=== PATIENT | male | born 1955 | race Caucasian/White ===

== ENCOUNTER → 2017-02-06 | Outpatient (CLI) | payer OTHER ==
[~2017-02-06] MED LIST: ATOR10TA88 PO; COEN400C3 PO; CZR25 PO; NIAC500T11 PO
[2017-02-06 12:09] LABS: BASO % 0.2 %; BASO ABS # 0.01 K/uL (0-0.2); COMPLETE YES; EOS % 1.3 %; HEMATOCRIT 38.5 % (42-52); IG% 0.2 %; LYMPH % 28.3 %; LYMPH ABS # 1.54 K/uL (1.2-3.4); MEAN CELL VOLUME 88.1 fL (80-100); MEAN CORPUSCULAR HEMOGLOBIN 30.9 pg (25-34); MEAN CORPUSCULAR HGB CONC 35.1 g/dl (32-36); MONO % 6.6 %; NEUT % 63.4 %; PLATELET COUNT 268 K/uL (130-400); RED BLOOD COUNT 4.37 M/uL (4.7-6.1); WHITE BLOOD COUNT 5.44 K/uL (4.8-10.8)
[2017-02-06 12:24] LABS: ALB/GLOB RATIO 1.3 (0.9-2); ALT/SGPT 29 U/L (12-78); AST/SGOT 18 U/L (15-37); BLOOD UREA NITROGEN 14 mg/dl (7-18); BUN/CREATININE RATIO 14.3 (10-20); CALCIUM 9.3 mg/dl (8.5-10.1); CARBON DIOXIDE 25 mmol/L (21-32); CHLORIDE 107 mmol/L (98-107); CREATININE 0.95 mg/dl (0.60-1.40); GLUCOSE 127 mg/dl (70-99); POTASSIUM 4.3 mmol/L (3.5-5.1); SODIUM 139 mmol/L (136-145)
[2017-02-06 12:30] LABS: ALKALINE PHOSPHATASE 63 U/L (45-117); CHOLESTEROL 143 mg/dl (0-200); CHOLESTEROL/HDL RATIO 4.3; HDL CHOLESTEROL 33 mg/dl; LDL CHOLESTEROL CALCULATED 66 mg/dl; TRIGLYCERIDES 221 mg/dl (0-150); VERY LOW DENSITY LIPOPROT CALC 44 mg/dl
[2017-02-06 12:35] LABS: ESTIMATED AVERAGE GLUCOSE 128 mg/dl; HA1C FLAG Normal (Normal)
== END | disposition home or self-care (01) ==
LOC: C.LABBFT 07:16
PROVIDERS: ATTEND Nurse Practitioner
DX: E78.00 Pure hypercholesterolemia, unspecified (principal); I10 Essential (primary) hypertension; R79.9 Abnormal finding of blood chemistry, unspecified; D64.9 Anemia, unspecified; R73.01 Impaired fasting glucose; Z12.5 Encounter for screening for malignant neoplasm of prostate

== ENCOUNTER → 2017-06-25 | Outpatient (CLI) | payer OTHER ==
[~2017-06-25] MED LIST changes: +ATOR10TA82 PO; -ATOR10TA88 PO
[2017-06-25 09:31] LABS: HEMATOCRIT 40.1 % (42-52); HEMOGLOBIN 14.1 g/dL (14.0-18.0); MEAN CELL VOLUME 87.4 fL (80-100); MEAN CORPUSCULAR HEMOGLOBIN 30.7 pg (25-34); MEAN CORPUSCULAR HGB CONC 35.2 g/dl (32-36); MEAN PLATELET VOLUME 9.9 fL (7.4-10.4); PLATELET COUNT 234 K/uL (130-400); RED CELL DISTRIBUTION WIDTH CV 12.7 % (11.5-14.5); RED CELL DISTRIBUTION WIDTH SD 40.5 fL (36.4-46.3); WHITE BLOOD COUNT 6.23 K/uL (4.8-10.8)
[2017-06-25 09:42] LABS: ALT/SGPT 39 U/L (12-78); BLOOD UREA NITROGEN 19 mg/dl (7-18); CALCIUM 9.3 mg/dl (8.5-10.1); CARBON DIOXIDE 25 mmol/L (21-32); CHOLESTEROL 180 mg/dl (0-200); CREATININE 0.91 mg/dl (0.60-1.40); GLUCOSE 139 mg/dl (70-99); POTASSIUM 4.3 mmol/L (3.5-5.1); SODIUM 136 mmol/L (136-145)
[2017-06-25 09:45] LABS: ALKALINE PHOSPHATASE 58 U/L (45-117); AST/SGOT 21 U/L (15-37); TOTAL PROTEIN 7.3 gm/dl (6.4-8.2)
[2017-06-25 09:49] LABS: HEMOGLOBIN A1C 6.2 % (4.5-5.6)
== END | disposition home or self-care (01) ==
LOC: C.LAB 06:58
PROVIDERS: ATTEND Nurse Practitioner
DX: D64.9 Anemia, unspecified (principal); E78.00 Pure hypercholesterolemia, unspecified; R73.01 Impaired fasting glucose

== ENCOUNTER 2022-03-01 21:58 | Observation (INO) ==
[2022-03-01] MEDS ORDERED: STAT IV Infusion **Titration per Protocol STA (22:08)
[2022-03-01] MEDS ORDERED: dilTIAZem HCl 5 MG/ML 5 ML VIAL IV STA (22:08)
[2022-03-01] MEDS ORDERED: dilTIAZem HCL 125 MG in DEXTROSE 5% 100 ML IV SCH (22:15)
[2022-03-01 22:27] LABS: Hematocrit (blood only) 36.3 % (40.1-51.0); Mean Corpuscular Hemoglobin 31.4 pg (25.0-34.0); Mean Corpuscular Hgb Conc 35.8 g/dL (32.0-36.0); Mean Corpuscular Volume 87.7 fL (80.0-100.0); Mean Platelet Volume 9.7 fL (9.4-12.4); Platelet Count 236 K/uL (130-400); RDW Coefficient of Variation 12.4 % (11.5-14.5); RDW Standard Deviation 39.7 fL (36.4-46.3); Red Blood Count 4.14 M/uL (4.63-6.08); White Blood Count 7.48 K/ul (4.8-10.8)
--- NOTE | 2022-03-01 22:30 | Emergency Department Note ---
History of Present Illness General Chief complaint: Cardiac Assessment Stated complaint: A FIB WITH RVR History of Present Illness Maximum Pain Intensity: 2 This 66-year-old who is a history of A. fib on Xarelto and flecainide presents to the ER complaining of A. fib with chest discomfort Location: Chest Quality: Discomfort Severity: Moderate Duration: Today Timing: Today Context: Patient was concerned and called EMS Modifying factors: better with Cardizem; worse with nothing Patient states he had 3 glasses of wine. Nothing overly excessive for himself. He does not drink daily. He is not chronically in A. fib. He had cardioversion x3. Patient denies fever, chills, dyspnea, abdominal pain, flulike illness. Patient states he feels better after that medic gave him Cardizem. He states most of his symptoms have resolved. Home Medications Medication Instructions Recorded Confirmed Type CPAP Machine #1 ea 04/14/19 02/14/22 Rx CPAP Machine #1 ea 04/29/19 02/14/22 Rx CPAP Machine #1 ea 06/25/19 02/14/22 Rx CPAP Machine #1 ea 06/25/19 02/14/22 Rx baclofen 10 mg tablet 10 mg PO BID PRN muscle pain #60 07/25/21 03/01/22 Rx tabs metoprolol succinate 100 mg 150 mg PO PM #135 tabs 07/30/21 03/01/22 Rx tablet,extended release 24 hr rivaroxaban 20 mg tablet (Xarelto) 20 mg PO QPM 09/14/21 03/01/22 History hydrochlorothiazide 25 mg tablet 25 mg PO QAM #90 tabs 10/16/21 03/01/22 Rx doxazosin 2 mg tablet 2 mg PO QPM #90 tabs 12/10/21 03/01/22 Rx dulaglutide 1.5 mg/0.5 mL 1.5 mg (0.5 mL) subcut WK #2 mL 12/26/21 03/01/22 Rx subcutaneous pen injector losartan 50 mg tablet 50 mg PO DAILY #90 tabs 12/26/21 03/01/22 Rx flecainide 50 mg tablet 50 mg PO Q12H #180 tabs 12/27/21 03/01/22 Rx icosapent ethyl 1 gram capsule 2 g PO BID #360 caps 01/17/22 03/01/22 Rx (Vascepa) acetaminophen 300 mg-codeine 30 mg 1 tab PO Q8H PRN Pain #90 tabs 02/05/22 1 Rx tablet atorvastatin 80 mg tablet 80 mg PO HS #30 tabs 02/07/22 03/01/22 Rx levothyroxine 75 mcg tablet 75 mcg PO DAILY #90 tabs 02/27/22 03/01/22 Rx diclofenac sodium 1 % topical gel 2 g topical QID PRN PAIN 03/01/22 03/01/22 History valacyclovir 1 gram tablet 2,000 mg PO BID PRN Cold Sores 03/01/22 03/01/22 History Allergies Allergy/AdvReac Type Severity Reaction Status Date / Time amoxicillin Allergy Intermediate rash Verified 03/01/22 23:04 azithromycin Allergy Intermediate Rash Verified 03/01/22 23:04 clavulanic acid Allergy Intermediate rash Verified 03/01/22 23:04 clindamycin Allergy Unknown CANT Verified 03/01/22 23:04 REMEMBER Quinolones Allergy Unknown CANT Verified 03/01/22 23:04 REMEMBER INO Inhibitors AdvReac Intermediate Cough Verified 03/01/22 23:04 fentanyl AdvReac Intermediate "HARD TO Verified 03/01/22 23:04 GET OUT OF MY SYSTEM" metformin AdvReac Intermediate diarrhea Verified 03/01/22 23:04 rosuvastatin [From Crestor] AdvReac Intermediate NAUSEA AND Verified 03/01/22 23:04 CONSTIPATED tamsulosin AdvReac Intermediate dizziness Verified 03/01/22 23:04 Past Med/Surg History Medical History Anxiety Atrial fibrillation BPH with obstruction/lower urinary tract symptoms Cardiomyopathy Resolved Chronic back pain Diabetes mellitus, type 2 Hyperlipidemia Hypertension Osteoarthritis Sleep apnea CPAP Surgical History Adverse anesthesia outcome [place] ill x1 week (described as feeling hungover) - Fentanyl History of arthroscopy RIGHT History of cardioversion [place] with cardioversion 2019 History of colonoscopy History of endoscopic sinus surgery History of tonsillectomy Family History Father Hx of CABG Colon cancer Type 2 diabetes mellitus Other No family history of adverse response to anesthesia No family history of bleeding disorder Denies family history of Ovarian cancer Prostate cancer Myocardial infarction Breast cancer Social History Smoking Status: Former smoker Age Started Using Tobacco: 18; Age Quit Using Tobacco: 26; packs per day: 1; Second Hand Exposure: No; Hx Alcohol Use: Yes Alcohol type: beer and hard liquor Alcohol Intake Frequency Comment: 2-3 beers/ every 2 weeks Hx Substance Use: No Preferred Language: Swiss Communication Ability: Effective Hearing Ability: Hard of Hearing Seed Expert Required: No Beliefs That Will Affect Care: None marital status: Current Living Situation: Spouse current occupational status: employed 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 Safe at Home: Yes Childhood Exposure to Second-Hand Smoke: Yes caffeine: Yes Dental Care, Regularly: Yes Physical Activity Frequency: Does not Exercise Seatbelt Use: always Sunscreen Use: Yes Assistive Devices: CPAP and Glasses Review of Systems A total of 10 systems reviewed and were otherwise negative Physical Exam Vital Signs Vital Signs - 24 hr 03/01/22 22:03 03/01/22 22:30 03/01/22 22:35 Temperature 36.8 C Temperature Source Oral Pulse Rate 95 H 102 H 106 H Pulse Rate from SpO2 Sensor Respiratory Rate 20 18 18 Respiratory Depth Normal Blood Pressure 142/96 H 118/59 L 129/66 Blood Pressure Mean 111 78 87 Pulse Oximetry 96 95 96 Oxygen Delivery Method Room Air Sepsis New/Unexplained Change in Mental Status N/A Sepsis Action Taken by Nursing No Action Required 03/01/22 22:40 03/01/22 22:40 03/01/22 22:45 Temperature Temperature Source Pulse Rate 105 H 117 H Pulse Rate from SpO2 Sensor 111 H 112 H Respiratory Rate 23 25 H Respiratory Depth Blood Pressure 102/74 Blood Pressure Mean 83 Pulse Oximetry 96 96 Oxygen Delivery Method Sepsis New/Unexplained Change in Mental Status Sepsis Action Taken by Nursing 03/01/22 22:45 03/01/22 22:50 03/01/22 22:50 Temperature Temperature Source Pulse Rate 107 H 109 H Pulse Rate from SpO2 Sensor 110 H Respiratory Rate 17 Respiratory Depth Blood Pressure 131/66 111/62 Blood Pressure Mean 87 78 Pulse Oximetry 96 Oxygen Delivery Method Sepsis New/Unexplained Change in Mental Status Sepsis Action Taken by Nursing 03/01/22 22:55 03/01/22 22:55 03/01/22 23:00 Temperature Temperature Source Pulse Rate 102 H Pulse Rate from SpO2 Sensor 109 H Respiratory Rate 15 Respiratory Depth Blood Pressure 115/65 107/71 Blood Pressure Mean 81 83 Pulse Oximetry 96 Oxygen Delivery Method Sepsis New/Unexplained Change in Mental Status Sepsis Action Taken by Nursing 03/01/22 23:00 03/01/22 23:05 03/01/22 23:05 Temperature Temperature Source Pulse Rate 101 H 111 H Pulse Rate from SpO2 Sensor 109 H 110 H Respiratory Rate 20 23 Respiratory Depth Blood Pressure 127/70 Blood Pressure Mean 89 Pulse Oximetry 96 96 Oxygen Delivery Method Sepsis New/Unexplained Change in Mental Status Sepsis Action Taken by Nursing 03/01/22 23:10 03/01/22 23:10 03/01/22 23:15 Temperature Temperature Source Pulse Rate 104 H Pulse Rate from SpO2 Sensor 109 H Respiratory Rate 17 Respiratory Depth Blood Pressure 118/67 112/62 Blood Pressure Mean 84 78 Pulse Oximetry 97 Oxygen Delivery Method Sepsis New/Unexplained Change in Mental Status Sepsis Action Taken by Nursing 03/01/22 23:15 03/01/22 23:20 03/01/22 23:20 Temperature Temperature Source Pulse Rate 102 H 112 H Pulse Rate from SpO2 Sensor 107 H 109 H Respiratory Rate 19 21 Respiratory Depth Blood Pressure 106/68 Blood Pressure Mean 80 Pulse Oximetry 96 96 Oxygen Delivery Method Sepsis New/Unexplained Change in Mental Status Sepsis Action Taken by Nursing 03/01/22 23:25 03/01/22 23:25 03/01/22 23:30 Temperature Temperature Source Pulse Rate 103 H Pulse Rate from SpO2 Sensor 108 H Respiratory Rate 16 Respiratory Depth Blood Pressure 117/52 L 118/56 L Blood Pressure Mean 73 76 Pulse Oximetry 97 Oxygen Delivery Method Sepsis New/Unexplained Change in Mental Status Sepsis Action Taken by Nursing 03/01/22 23:30 03/01/22 23:35 03/01/22 23:35 Temperature Temperature Source Pulse Rate 106 H 97 H Pulse Rate from SpO2 Sensor 100 H 100 H Respiratory Rate 16 26 H Respiratory Depth Blood Pressure 126/57 L Blood Pressure Mean 80 Pulse Oximetry 96 96 Oxygen Delivery Method Sepsis New/Unexplained Change in Mental Status Sepsis Action Taken by Nursing 03/01/22 23:40 03/01/22 23:40 03/01/22 23:46 Temperature Temperature Source Pulse Rate 116 H 108 H Pulse Rate from SpO2 Sensor 109 H 98 H Respiratory Rate 20 19 Respiratory Depth Blood Pressure 126/70 Blood Pressure Mean 88 Pulse Oximetry 97 97 Oxygen Delivery Method Sepsis New/Unexplained Change in Mental Status Sepsis Action Taken by Nursing 03/01/22 23:46 03/01/22 23:50 03/01/22 23:50 Temperature Temperature Source Pulse Rate 98 H Pulse Rate from SpO2 Sensor 100 H Respiratory Rate 18 Respiratory Depth Blood Pressure 123/74 102/65 Blood Pressure Mean 90 77 Pulse Oximetry 96 Oxygen Delivery Method Sepsis New/Unexplained Change in Mental Status Sepsis Action Taken by Nursing VITALS: Vitals are noted on the nurse's note and reviewed by myself. Vital signs tachycardic. GENERAL: Pleasant gentleman, in no acute distress, nondiaphoretic, well- developed well-nourished. SKIN: The skin was without rashes, erythema, edema, or bruising. There is no tenting of the skin. Capillary reflex less than 2 seconds. HEAD: Normocephalic atraumatic. EARS: External auditory canals clear, EYES: Pupils equal round and reactive to light and accommodation. Conjunctivae without injection, sclerae without icterus. Extraocular movements intact. NOSE: Patent, turbinates without inflammation or discharge. MOUTH: Mucous membranes moist. Pharynx without erythema or exudate. Uvula midline. Airway patent. Tongue does not deviate. NECK: Supple without nuchal rigidity. No lymphadenopathy. No thyromegaly. Cervical spine is nontender. No JVD. HEART: Tachycardic irregularly irregular in the 110s LUNGS: Clear to auscultation bilaterally without wheezes, rales or rhonchi. No retractions or accessory muscle use. ABDOMEN: Positive bowel sounds x 4. Normal tympanic percussion. Soft, no ntender, without masses or organomegaly. Goff sign negative. No guarding or rebound tenderness. No CVA tenderness MUSCULOSKELETAL: No muscle atrophy, erythema, or edema noted. NEURO: Patient was alert and oriented to person place and time. Normal sensation to light and sharp touch. No focal neurological deficits. Course Administered Medications Diltiazem HCl 125 mg/ Dextrose 125 mls @ 5 mls/hr IV .Q24H [facility]; Protocol Stop: 03/31/22 22:14 Last Admin: 03/01/22 22:31 Dose: 5 mg/hr, 5 mls/hr Documented By: ALPHONSE Co-signed By: KML Discontinued Medications Diltiazem HCl (Diltiazem Hcl 5 Mg/Ml 5 Ml Vial) 10 mg IV NOW STA Stop: 03/01/22 22:09 Last Admin: 03/02/22 00:29 Dose: Not Given Documented By: MYRA Miscellaneous (Stat Iv Infusion Titration Per Protocol) 1 each N/A NOW STA Stop: 03/01/22 22:09 Last Admin: 03/01/22 22:31 Dose: Not Given Documented By: ALPHONSE Critical Care Time Critical Care Time: Yes Total Critical Care Time: 35 I have personally spent 35 minutes of critical care time in the direct management of this patient. This includes bedside care, interpretation of diagnostic studies, and testing, discussion with consultants, patient, and family members, and other required patient management activities. This 35 minutes is in excess of all separately billable procedures. Medical Decision Making Medical Records Attestation: I reviewed the patient's medical records. Home Medications Current Medication List: was personally reviewed by me Laboratory Data Attestation: I reviewed the patient's lab results. Result diagrams: 03/01/22 22:13 03/01/22 22:13 Lab Results 03/01/22 03/01/22 03/01/22 Range/Units 22:13 22:13 22:13 WBC 7.48 (4.8-10.8) K/ul RBC 4.14 L (4.63-6.08) M/uL Hgb 13.0 L (14.0-18.0) g/dl Hct 36.3 L (40.1-51.0) % MCV 87.7 (80.0-100.0) fL MCH 31.4 (25.0-34.0) pg MCHC 35.8 (32.0-36.0) g/dL RDW Std Deviation 39.7 (36.4-46.3) fL RDW Coeff of Tae 12.4 (11.5-14.5) % Plt Count 236 (130-400) K/uL MPV 9.7 (9.4-12.4) fL Immature Gran % (Auto) 0.3 % Neut % (Auto) 90.5 % Lymph % (Auto) 8.4 % [place] % (Auto) 0.7 % Eos % (Auto) 0.0 % Baso % (Auto) 0.1 % Neut # (Auto) 6.77 H (1.4-6.5) K/uL Lymph # (Auto) 0.63 L (1.2-3.4) K/uL [place] # (Auto) 0.05 L (0.24-0.82) K/uL Eos # (Auto) 0.00 (0-0.50) K/uL Baso # (Auto) 0.01 (0-0.2) K/uL Immature Gran # (Auto) 0.02 (0.00-0.02) K/uL Echinocytes 2+ Sodium 134 L (136-145) mmol/L Potassium 4.0 (3.5-5.1) mmol/L Chloride 102 (98-107) mmol/L Carbon Dioxide 23 (21-32) mmol/L Anion Gap 9 (3-11) BUN 32 H (6-23) mg/dl Creatinine 1.25 (0.6-1.4) mg/dl Est Cr Clr Drug Dosing 75.5 ml/min Est GFR ( Amer) 68.6 ml/min Est GFR (Non-Af Amer) 59.2 ml/min BUN/Creatinine Ratio 25.6 H (10-20) Glucose 327 H* (70-99(Fasting)) mg/dl Calcium 9.5 (8.5-10.1) mg/dl Magnesium 1.7 (1.7-2.4) mg/dl Total Bilirubin 0.9 (0.2-1.0) mg/dl AST 19 (13-39) U/L ALT 24 (7-52) U/L Alkaline Phosphatase 51 (34-104) U/L Troponin I High Sens 3.7 (0-20) pg/ml Total Protein 7.2 (6.0-8.3) gm/dl Albumin 4.5 (3.4-5.0) gm/dl Globulin 2.7 (2.5-4.0) gm/dl Albumin/Globulin Ratio 1.7 (0.9-2) TSH 1.238 (0.300-4.500) uIu/ml SARS-CoV-2, RNA, NAAT (NEGATIVE) 03/01/22 Range/Units 22:13 WBC (4.8-10.8) K/ul RBC (4.63-6.08) M/uL Hgb (14.0-18.0) g/dl Hct (40.1-51.0) % MCV (80.0-100.0) fL MCH (25.0-34.0) pg MCHC (32.0-36.0) g/dL RDW Std Deviation (36.4-46.3) fL RDW Coeff of Tae (11.5-14.5) % Plt Count (130-400) K/uL MPV (9.4-12.4) fL Immature Gran % (Auto) % Neut % (Auto) % Lymph % (Auto) % [place] % (Auto) % Eos % (Auto) % Baso % (Auto) % Neut # (Auto) (1.4-6.5) K/uL Lymph # (Auto) (1.2-3.4) K/uL [place] # (Auto) (0.24-0.82) K/uL Eos # (Auto) (0-0.50) K/uL Baso # (Auto) (0-0.2) K/uL Immature Gran # (Auto) (0.00-0.02) K/uL Echinocytes Sodium (136-145) mmol/L Potassium (3.5-5.1) mmol/L Chloride (98-107) mmol/L Carbon Dioxide (21-32) mmol/L Anion Gap (3-11) BUN (6-23) mg/dl Creatinine (0.6-1.4) mg/dl Est Cr Clr Drug Dosing ml/min Est GFR ( Amer) ml/min Est GFR (Non-Af Amer) ml/min BUN/Creatinine Ratio (10-20) Glucose (70-99(Fasting)) mg/dl Calcium (8.5-10.1) mg/dl Magnesium (1.7-2.4) mg/dl Total Bilirubin (0.2-1.0) mg/dl AST (13-39) U/L ALT (7-52) U/L Alkaline Phosphatase (34-104) U/L Troponin I High Sens (0-20) pg/ml Total Protein (6.0-8.3) gm/dl Albumin (3.4-5.0) gm/dl Globulin (2.5-4.0) gm/dl Albumin/Globulin Ratio (0.9-2) TSH (0.300-4.500) uIu/ml SARS-CoV-2, RNA, NAAT NEGATIVE (NEGATIVE) Imaging Data Attestation: I personally reviewed and interpreted this imaging study as follows: Radiologist's Impression: Chest X-Ray 03/01/22 22:08 SINGLE VIEW CHEST CLINICAL HISTORY: Dysrhythmia FINDINGS: An AP, portable, upright chest radiograph is compared to study dated 08/08/2021. The heart is enlarged. The pulmonary vasculature is noncongested. Chronic interstitial thickening is similar to previous. There is mild bibasilar atelectasis. The lungs and pleural spaces are otherwise clear. No pneumothorax is seen. The skeletal structures are osteopenic. The bony thorax is grossly intact. IMPRESSION: Cardiomegaly with no active disease in the chest. ACT 112: Negative or not required by law. Electronically signed by: Tru Campuzano M.D. 03/01/2022 10:54 PM MDM Narrative Prior records/ancillary studies reviewed. Triage Nursing notes reviewed. Additional history obtained from EMS. The patient's history was concerning for chest pain. Differential diagnosis: Etiologies such as cardiac ischemia, aortic dissection, pulmonary embolism, pneumonia, pneumothorax, musculoskeletal, infections, pericarditis, myocarditis, esophageal rupture, gastrointestinal, as well as others were entertained. Physical examination: As above. ER treatment provided: An order was placed for continuous cardiac monitoring. The monitor shows a rate of 60-1 50 with a A. fib RVR rhythm. Cardizem. EMS gave IV fluids and 20 of Cardizem IV On reassessment the patient felt better. Diagnostic interpretation by me: The electrocardiogram was ordered for chest pain EKG: Irregularly irregular with no acute ST-T wave changes, rate of 105. Impression A. fib with RVR interpreted by myself I think arrhythmia is unlikely. EKG shows no interval abnormalities such as QT prolongation or WPW. There are no findings to suggest Brugada syndrome. Hypertrophic cardiomyopathy was considered but there are no clear historical elements pointing toward this. EKG is not suggestive. The QRS voltage is not extremely large The labs revealed negative troponin and repeat was ordered Imaging studies: Chest x-ray as above HEART SCORE: Hx: high/mod/low suspicion: 1 ECG: ST depression/nonspecific changes/normal: 0 Age: Greater than 65/45-64/less than 45: 2 Risk factors: (Hypertension, hyperlipidemia, diabetes, coronary disease, tobacco use, cocaine use): 1 Troponin: Greater than 2 times normal limits/1-2 times normal limits/normal: 0 Total: 4 Consultation: A consultation was placed with the hospitalist. The case was discussed and diagnostics were reviewed. The patient was evaluated in the ER for further treatment. Exam and history seem consistent with A. fib with RVR. Patient still tachycardic. A drip was started. Medicine is consulted. He will be evaluated for admission. He has been on Xarelto. He has not missed any doses. By the evaluation outlined above emergent etiologies such as aortic dissection, pulmonary embolism, pneumonia, pneumothorax, infections, pericarditis, myocarditis, gastrointestinal, as well as others were deemed relatively unlikely. The pt informed about the findings as listed above. All questions were answered and pleased with the treatment. The chart was completed utilizing [employer] Speech voice recognition software. Grammatical errors, random word insertions, pronoun errors, and incomplete sentences are an occassional consequence of this system due to software limitations, ambient noise, and hardware issues. Any formal questions or concerns about the content, text, or information contained within the body of this dictation should be directly addressed to the physician diver assistant for clarification. Impression & Plan Atrial fibrillation with rapid ventricular response, Chest pain Discharge Plan Visit Data Chief Complaint: Cardiac Assessment Stated Complaint: A FIB WITH RVR ED Provider: Esequiel Starks ED Midlevel Provider: Mavis Stafford Discharge Problem: Atrial fibrillation with rapid ventricular response, Chest pain Patient Disposition: Admitted As Inpatient Condition: Good Discharge Instructions Interventions: ED Discharge Assessment Last Done: 03/02/22 00:37
[2022-03-01 22:49] LABS: Basophils # (auto) 0.01 K/uL (0-0.2); Basophils % (auto) 0.1 %; Echinocytes 2+; Immature Granulocytes # (auto) 0.02 K/uL (0.00-0.02); Immature Granulocytes % (auto) 0.3 %; Lymphocytes # (auto) 0.63 K/uL (1.2-3.4); Lymphocytes % (auto) 8.4 %; Monocytes # (auto) 0.05 K/uL (0.24-0.82); Monocytes % (auto) 0.7 %; Neutrophils # (auto) 6.77 K/uL (1.4-6.5); Neutrophils % (auto) 90.5 %
--- NOTE | 2022-03-01 22:55 | XRay Report ---
SINGLE VIEW CHEST CLINICAL HISTORY: Dysrhythmia FINDINGS: An AP, portable, upright chest radiograph is compared to study dated 08/08/2021. The heart i s enlarged. The pulmonary vasculature is noncongested. Chronic interstitial thickening is similar to previous. There is mild bibasilar atelectasis. The lungs and pleural spaces are otherwise clear. No p neumothorax is seen. The skeletal structures are osteopenic. The bony thorax is grossly intact. IMPRESSION: Cardiomegaly with no active disease in the chest. ACT 112: Negative or not required by law. Electronically signed by: Tru Campuzano M.D. 03/01/2022 10:54 PM
[2022-03-01 23:06] LABS: Albumin Globulin Ratio 1.7 (0.9-2); Albumin Level 4.5 gm/dl (3.4-5.0); BUN Creatinine Ratio 25.6 (10-20); Bilirubin,Total 0.9 mg/dl (0.2-1.0); Calcium 9.5 mg/dl (8.5-10.1); Creatinine Clr Calc Pharmacy 75.5 ml/min; Est GFR (African American) 68.6 ml/min; Est GFR (Non-African American) 59.2 ml/min; Globulin 2.7 gm/dl (2.5-4.0); Magnesium 1.7 mg/dl (1.7-2.4); Total Protein 7.2 gm/dl (6.0-8.3); Troponin I High Sensitivity 3.7 pg/ml (0-20)
--- NOTE | 2022-03-01 23:58 | History & Physical Report ---
Date of Service March 01, 2022 Assessment & Plan (1) Atrial fibrillation with rapid ventricular response: Plan: 66yo male with atrial fibrillation s/p three prior cardioversions (03/2019, 04/2019 and 09/2021), on Flecainide, Metoprolol and Xarelto presenting in atrial fibrillation with RVR. Patient had some chest discomfort when AF initially started, now resolved. No ischemic changes on EKG. Troponin x 1 NEGATIVE. Recent steroid injection as well as EtOH intake this evening could be precipitating events for patient to go back into atrial fibrillation. He is presently asymptomatic. No evidence of failure. Started on Cardizem gtt in the ER -Admit to PCU -Continue Cardizem gtt for now - ideally wean to off by AM -Continue Flecainide 50mg po BID -Continue Metoprolol 150mg po daily -Continue Xarelto 20mg po qPM -Magnesium x 3gm IV -Cardiology consultation appreciated (2) Type II diabetes mellitus: Plan: Overall well controlled Type II DM with last HgbA1C 6.3 on 02/26/22. He is on Liraglutide outpatient. Elevated blood sugar presently. ?steroid + wine contributing? -Lantus 8u BID -ISS -Goal blood sugar 110 - 140 (3) Hypertension: Plan: Chronic. Blood pressure well controlled at present -Continue Losartan -HCTZ was recently discontinued -Continue metoprolol -Monitor (4) Hypercholesterolemia: Plan: Chronic. Stable on medications -Continue Atorvastatin 80mg po daily -Patient is on Icosapent 2gm po BID. May consider discontinuing or decreasing the dosage of this medication in setting of atrial fibrillation. Some studies suggest dose-related risk of AF with omega-3 fatty acid intake. (REDUCE-IT trial - AF with icosapent 5.3% vs placebo 3.9%) (5) Moderate obstructive sleep apnea: Plan: Chronic. Patient reports compliance with home CPAP -Continue CPAP [id number] qHS (6) Hypothyroidism: Plan: Patient recently restarted on Synthroid. Normal TSH today at 1.238 -Continue Synthroid History of Present Illness Chief Complaint: AF with RVR Primary Care Provider: MORA Moore Adan Polanco is a pleasant 66yo male with history of atrial fibrillation. He is presently on Flecainide and metoprolol as well as Xarelto antico agulation. Patient follows with Cardiology - last seen on 11/07/2021. He has had cardioversion x 3 - 03/2019, 04/2019 and most recently 09/2021. He did have a tachycardia induced non-ischemic cardiomyopathy - EF of 35-40% with mildly dilated LV and global hypokinesis on echocardiogram from 03/2019. This has since resolved. Most recent echocardiogram 05/16/2021 with normal LV size and function, mildly dilated LA, EF of 60-65% and no regional WMA. Patient was in his usual state of health today until this evening around 21:00. He was walking to the kitchen when he felt a thump in his chest, "like my heart stopped", followed by palpitations and mild substernal chest discomfort. He put on his home pulse oximeter and was in atrial fibrillation with rates of 110 - 115. He denies dizziness, SOB, pre-syncope. He has been compliant with his medications. Did already take his evening Flecainide and Metoprolol prior to arrival. He was recently restarted on Synthroid. He did get a steroid injection in his right knee today around 10:00 AM. He also reports drinking 3 glasses of wine this evening between the hours of 16:00 and 18:00 which is atypical for him. No additional complaints. He denies chest pain currently. He is still experiencing palpitations. He denies fever, chills, cough, SOB, nausea, vomiting, diarrhea or constipation. He is compliant with medications with no missed doses. In the ER he is afebrile, AF with RVR on arrival. He was started on a Cardizem gtt. Presently on gtt at 5 HR is 90's - 110's and son at bedside as well. ER Course: Diltiazem gtt Allergies Allergy/AdvReac Type Severity Reaction Status Date / Time amoxicillin Allergy Intermediate rash Verified 03/01/22 23:04 azithromycin Allergy Intermediate Rash Verified 03/01/22 23:04 clavulanic acid Allergy Intermediate rash Verified 03/01/22 23:04 clindamycin Allergy Unknown CANT Verified 03/01/22 23:04 REMEMBER Quinolones Allergy Unknown CANT Verified 03/01/22 23:04 REMEMBER INO Inhibitors AdvReac Intermediate Cough Verified 03/01/22 23:04 fentanyl AdvReac Intermediate "HARD TO Verified 03/01/22 23:04 GET OUT OF MY SYSTEM" metformin AdvReac Intermediate diarrhea Verified 03/01/22 23:04 rosuvastatin [From Crestor] AdvReac Intermediate NAUSEA AND Verified 03/01/22 23:04 CONSTIPATED tamsulosin AdvReac Intermediate dizziness Verified 03/01/22 23:04 Home Medications Medication Instructions Recorded Confirmed Type CPAP Machine #1 ea 04/14/19 02/14/22 Rx CPAP Machine #1 ea 04/29/19 02/14/22 Rx CPAP Machine #1 ea 06/25/19 02/14/22 Rx CPAP Machine #1 ea 06/25/19 02/14/22 Rx baclofen 10 mg tablet 10 mg PO BID PRN muscle pain #60 07/25/21 03/01/22 Rx tabs metoprolol succinate 100 mg 150 mg PO PM #135 tabs 07/30/21 03/01/22 Rx tablet,extended release 24 hr rivaroxaban 20 mg tablet (Xarelto) 20 mg PO QPM 09/14/21 03/01/22 History hydrochlorothiazide 25 mg tablet 25 mg PO QAM #90 tabs 10/16/21 03/01/22 Rx doxazosin 2 mg tablet 2 mg PO QPM #90 tabs 12/10/21 03/01/22 Rx dulaglutide 1.5 mg/0.5 mL 1.5 mg (0.5 mL) subcut WK #2 mL 12/26/21 03/01/22 Rx subcutaneous pen injector losartan 50 mg tablet 50 mg PO DAILY #90 tabs 12/26/21 03/01/22 Rx flecainide 50 mg tablet 50 mg PO Q12H #180 tabs 12/27/21 03/01/22 Rx icosapent ethyl 1 gram capsule 2 g PO BID #360 caps 01/17/22 03/01/22 Rx (Vascepa) acetaminophen 300 mg-codeine 30 mg 1 tab PO Q8H PRN Pain #90 tabs 02/05/22 03/01/22 Rx tablet atorvastatin 80 mg tablet 80 mg PO HS #30 tabs 02/07/22 03/01/22 Rx levothyroxine 75 mcg tablet 75 mcg PO DAILY #90 tabs 02/27/22 03/01/22 Rx diclofenac sodium 1 % topical gel 2 g topical QID PRN PAIN 03/01/22 03/01/22 History valacyclovir 1 gram tablet 2,000 mg PO BID PRN Cold Sores 03/01/22 03/01/22 History Past Med/Surg History Medical History Anxiety Atrial fibrillation BPH with obstruction/lower urinary tract symptoms Cardiomyopathy Resolved Chronic back pain Diabetes mellitus, type 2 Hyperlipidemia Hypertension Osteoarthritis Sleep apnea CPAP Surgical History Adverse anesthesia outcome [place] ill x1 week (described as feeling hungover) - Fentanyl History of arthroscopy RIGHT History of cardioversion [place] with cardioversion 2019 History of colonoscopy History of endoscopic sinus surgery History of tonsillectomy Family History Father Hx of CABG Colon cancer Type 2 diabetes mellitus Other No family history of adverse response to anesthesia No family history of bleeding disorder Denies family history of Ovarian cancer Prostate cancer Myocardial infarction Breast cancer Social History Smoking Status: Former smoker Age Started Using Tobacco: 18; Age Quit Using Tobacco: 26; packs per day: 1; Second Hand Exposure: No; Hx Alcohol Use: Yes Alcohol type: beer and hard liquor Alcohol Intake Frequency Comment: 2-3 beers/ every 2 weeks Hx Substance Use: No Preferred Language: Latvian Communication Ability: Effective Hearing Ability: Hard of Hearing Customer Assistance Representative Required: No Beliefs That Will Affect Care: None marital status: Current Living Situation: Spouse current occupational status: employed 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 [employer] Feels Safe at Home: Yes Childhood Exposure to Second-Hand Smoke: Yes caffeine: Yes Dental Care, Regularly: Yes Physical Activity Frequency: Does not Exercise Seatbelt Use: always Sunscreen Use: Yes Assistive Devices: CPAP and Glasses Review of Systems Review of Systems: All systems reviewed & are unremarkable except as noted in HPI & below Physical Exam Physical Exam: General: patient resting comfortably, NAD, non-toxic in appearance, AA&O x 4 Skin: warm, dry, intact, no rashes or lesions, face is sun burned HEENT: NC/AT, PERRL, EOMI, anicteric sclera, conjunctiva without injection, external ear normal to inspection and nontender, nares patent, moist mucus membranes, dentition intact, no oropharyngeal lesions, neck supple, trachea midline, no LAD, no thyromegaly, no JVD Heart: +S1/S2, irregularly irregular, rates 90's - 110's, no m/r/g Lungs: equal air entry bilaterally, no rales/rhonchi/wheezes Abd: +BS, soft, NT/ND, no masses/organomegaly/ascites Ext: warm, 2+ pulses in UE/LE bilaterally, no clubbing/cyanosis or edema Neuro: nonfocal, patient AA&O x 4, speech intact, no facial droop, moving all extremities on command with equal strength 5/5 Results & Data Results & Data ([facility]) Vital Signs (Past 12 Hours) Vital Signs Temp Pulse Resp BP Pulse Ox O2 Del Method 03/01/22 23:50 98 H 18 96 03/01/22 23:50 102/65 03/01/22 23:46 123/74 03/01/22 23:46 108 H 19 97 03/01/22 23:40 116 H 20 97 03/01/22 23:40 126/70 03/01/22 23:35 97 H 26 H 96 03/01/22 23:35 126/57 L 03/01/22 23:30 106 H 16 96 03/01/22 23:30 118/56 L 03/01/22 23:25 103 H 16 97 03/01/22 23:25 117/52 L 03/01/22 23:20 112 H 21 96 03/01/22 23:20 106/68 03/01/22 23:15 102 H 19 96 03/01/22 23:15 112/62 03/01/22 23:10 104 H 17 97 03/01/22 23:10 118/67 03/01/22 23:05 127/70 03/01/22 23:05 111 H 23 96 03/01/22 23:00 101 H 20 96 03/01/22 23:00 107/71 03/01/22 22:55 115/65 03/01/22 22:55 102 H 15 96 03/01/22 22:50 109 H 17 96 03/01/22 22:50 107 H 111/62 03/01/22 22:45 131/66 03/01/22 22:45 117 H 25 H 96 03/01/22 22:40 105 H 23 96 03/01/22 22:40 102/74 03/01/22 22:35 106 H 18 129/66 96 03/01/22 22:30 102 H 18 118/59 L 95 03/01/22 22:03 36.8 C 95 H 20 142/96 H 96 Room Air Laboratory Results Laboratory Results WBC 7.48 K/ul (4.8-10.8) 03/01/22 22:13 RBC 4.14 M/uL (4.63-6.08) L 03/01/22 22:13 Hgb 13.0 g/dl (14.0-18.0) L 03/01/22 22:13 Hct 36.3 % (40.1-51.0) L 03/01/22 22:13 MCV 87.7 fL (80.0-100.0) 03/01/22 22:13 MCH 31.4 pg (25.0-34.0) 03/01/22 22:13 MCHC 35.8 g/dL (32.0-36.0) 03/01/22 22:13 RDW Std Deviation 39.7 fL (36.4-46.3) 03/01/22 22:13 RDW Coeff of Tae 12.4 % (11.5-14.5) 03/01/22 22:13 Plt Count 236 K/uL (130-400) 03/01/22 22:13 MPV 9.7 fL (9.4-12.4) 03/01/22 22:13 Immature Gran % (Auto) 0.3 % 03/01/22 22:13 Neut % (Auto) 90.5 % 03/01/22 22:13 Lymph % (Auto) 8.4 % 03/01/22 22:13 [place] % (Auto) 0.7 % 03/01/22 22:13 Eos % (Auto) 0.0 % 03/01/22 22:13 Baso % (Auto) 0.1 % 03/01/22 22:13 Neut # (Auto) 6.77 K/uL (1.4-6.5) H 03/01/22 22:13 Lymph # (Auto) 0.63 K/uL (1.2-3.4) L 03/01/22 22:13 [place] # (Auto) 0.05 K/uL (0.24-0.82) L 03/01/22 22:13 Eos # (Auto) 0.00 K/uL (0-0.50) 03/01/22 22:13 Baso # (Auto) 0.01 K/uL (0-0.2) 03/01/22 22:13 Immature Gran # (Auto) 0.02 K/uL (0.00-0.02) 03/01/22 22:13 Echinocytes 2+ 03/01/22 22:13 Sodium 134 mmol/L (136-145) L 03/01/22 22:13 Potassium 4.0 mmol/L (3.5-5.1) 03/01/22 22:13 Chloride 102 mmol/L (98-107) 03/01/22 22:13 Carbon Dioxide 23 mmol/L (21-32) 03/01/22 22:13 Anion Gap 9 (3-11) 03/01/22 22:13 BUN 32 mg/dl (6-23) H 03/01/22 22:13 Creatinine 1.25 mg/dl (0.6-1.4) 03/01/22 22:13 Est Cr Clr Drug Dosing 75.5 ml/min 03/01/22 22:13 Est GFR ( Amer) 68.6 ml/min 03/01/22 22:13 Est GFR (Non-Af Amer) 59.2 ml/min 03/01/22 22:13 BUN/Creatinine Ratio 25.6 (10-20) H 03/01/22 22:13 Glucose 327 mg/dl (70-99(Fasting)) H* 03/01/22 22:13 Calcium 9.5 mg/dl (8.5-10.1) 03/01/22 22:13 Magnesium 1.7 mg/dl (1.7-2.4) 03/01/22 22:13 Total Bilirubin 0.9 mg/dl (0.2-1.0) 03/01/22 22:13 AST 19 U/L (13-39) 03/01/22 22:13 ALT 24 U/L (7-52) 03/01/22 22:13 Alkaline Phosphatase 51 U/L (34-104) 03/01/22 22:13 Troponin I High Sens 3.7 pg/ml (0-20) 03/01/22 22:13 Total Protein 7.2 gm/dl (6.0-8.3) 03/01/22 22:13 Albumin 4.5 gm/dl (3.4-5.0) 03/01/22 22:13 Globulin 2.7 gm/dl (2.5-4.0) 03/01/22 22:13 Albumin/Globulin Ratio 1.7 (0.9-2) 03/01/22 22:13 TSH 1.238 uIu/ml (0.300-4.500) 03/01/22 22:13 SARS-CoV-2, RNA, NAAT NEGATIVE (NEGATIVE) 03/01/22 22:13 Impressions Chest X-Ray 03/01/22 22:08 SINGLE VIEW CHEST CLINICAL HISTORY: Dysrhythmia FINDINGS: An AP, portable, upright chest radiograph is compared to study dated 08/08/2021. The heart is enlarged. The pulmonary vasculature is noncongested. Chronic interstitial thickening is similar to previous. There is mild bibasilar atelectasis. The lungs and pleural spaces are otherwise clear. No pneumothorax is seen. The skeletal structures are osteopenic. The bony thorax is grossly intact. IMPRESSION: Cardiomegaly with no active disease in the chest. ACT 112: Negative or not required by law. Electronically signed by: Tru Campuzano M.D. 03/01/2022 10:54 PM ECG Additional Comments: AF with RVR, rate 105, no acute ischemic changes PG Care Time/CCT Total # of Minutes Spent Total Time Spent with Patient: Total time spent is greater than 50% in coordination of care (as documented) at patient's floor/unit and/or counseling patient: Coding Level of Care Code 23988 Initial Inpt Care Lvl 3 Diagnoses Atrial fibrillation with rapid ventricular response I48.91 Type II diabetes mellitus E11.9 Hypertension I10 Hypercholesterolemia E78.00 Moderate obstructive sleep apnea G47.33 Hypothyroidism E03.9
[2022-03-02] MEDS ORDERED: ONDANSETRON INJ 2 MG/ML 2 ML VIAL IV PRN (00:47)
[2022-03-02] MEDS ORDERED: ACETAMINOPHEN 325 MG TAB PO PRN (00:47)
[2022-03-02] MEDS ORDERED: BACLOFEN 10 MG TAB PO PRN (00:47)
[2022-03-02] MEDS ORDERED: DEXTROSE 50% 50 ML SYRINGE IV PRN (00:47)
[2022-03-02] MEDS ORDERED: GLUCAGON FOR INJ 1 MG VIAL SQ PRN (00:47)
[2022-03-02] MEDS ORDERED: GLUCOSE 40% GEL 15 GM TUBE PO PRN (00:47)
[2022-03-02] MEDS ORDERED: GLUCOSE 10 TAB/TUBE PO PRN (00:47)
[2022-03-02] MEDS ORDERED: CARBOHYDRATES FOR HYPOGLYCEMIA PO PRN (00:47)
--- NOTE | 2022-03-02 01:01 | Emergency Department Note ---
ED Visit Note I was consulted by the Advanced Practice Provider Audrey Stafford PA-C. I saw the patient personally and performed a substantive portion of the visit. This includes aspects of the HPI, MDM, diagnostic interpretations, and disposition/plan. Patient with A. fib with RVR. .
[2022-03-02] MEDS: MAGNESIUM SULFATE / D5W 1 GM/100 ML BAG IV SCH ×3 (01:15→05:18)
[2022-03-02] MEDS: INSULIN ASPART PER UNIT SC SCH ×4 (01:20→17:49)
[2022-03-02] MEDS ORDERED: LEVOTHYROXINE SODIUM 75 MCG TABLET PO SCH (06:30)
--- NOTE | 2022-03-02 07:07 | Electrocardiogram Report ---
Test Reason : Blood Pressure : / mmHG Vent. Rate : 105 BPM Atrial Rate : 141 BPM P-R Int : 000 ms QRS Dur : 100 ms QT Int : 334 ms P-R-T Axes : 000 063 020 degrees QTc Int : 441 ms Atrial fibrillation with rapid ventricular response Abnormal ECG When compared with ECG of 17-SEP-2021 07:25, Atrial fibrillation has replaced Sinus rhythm Vent. rate has increased BY 43 BPM Confirmed by Emeka White ([id number]) on 03/02/2022 7:07:45 AM Referred By: REFERRED SELF Confirmed By:Andrey White
--- NOTE | 2022-03-02 07:08 | Electrocardiogram Report ---
Test Reason : Blood Pressure : / mmHG Vent. Rate : 099 BPM Atrial Rate : 141 BPM P-R Int : 000 ms QRS Dur : 098 ms QT Int : 294 ms P-R-T Axes : 000 055 015 degrees QTc Int : 377 ms Poor data quality, interpretation may be adversely affected Atrial fibrillation Abnormal ECG When compared with ECG of 01-MAR-2022 22:07, (unconfirmed) QT has shortened Confirmed by Emeka White ([id number]) on 03/02/2022 7:08:13 AM Referred By: REFERRED SELF Confirmed By:Andrey White
[2022-03-02] MEDS ORDERED: LANTUS PER UNIT CHARGE SQ SCH (09:00)
[2022-03-02] MEDS ORDERED: LOSARTAN POTASSIUM 50 MG TAB PO SCH (09:00)
[2022-03-02] MEDS ORDERED: INFLUENZA VACCINE HIGH DOSE PF 65+ 0.7 ML SYR IM ONE (09:00)
[2022-03-02] MEDS ORDERED: FLECAINIDE ACETATE 100 MG TABLET PO SCH ×2 (09:00)
--- NOTE | 2022-03-02 09:06 | Cardiology Consultation ---
Date of Consultation March 02, 2022 Assessment & Plan (1) Hypertriglyceridemia: (2) Hypothyroidism: (3) Atrial fibrillation: (4) Cardiomyopathy: Plan 1. Atrial fibrillation: The patient appears to have transition back to atrial fibrillation last evening. He has multiple risk factors for atrial fibrillation including obstructive sleep apnea and hypertension. He did have a few glasses of wine last evening which is unusual for him. Unclear if this played a role in his development of atrial fibrillation. In the past he has had few symptoms associated with the arrhythmia. Currently he is feeling well. His rate control was suboptimal the time of presentation with this is likely due to significant anxiety over the episode itself. He is on a very low-dose of amiodarone infusion. I think we will stop the infusion and continue his metoprolol. If his rates are reasonably well controlled with activity I think he can be safely discharged home. I think he should have his flecainide increased to 100 mg twice daily. He should continue on his Xarelto. Should continue on his current dose of metoprolol succinate which is 150 mg daily. He was instructed to follow up with our clinic via telephone or in person on Friday in order to determine if he will require any additional changes in treatment. I think there is reasonable chance that he will convert back to sinus on his own within the next day or 2. 2. Hypertriglyceridemia: He has a history of very high triglycerides. He is on high-dose atorvastatin and Vascepa. There is some concern that Emerson 3 fatty acids predispose patients to atrial fibrillation. However, I think with his degree of hypertriglyceridemia and his other risk factors for coronary disease he should continue on Vascepa. As with most patients who have moderate to severe hypertriglyceridemia, limiting alcohol is advisable. 3. Cardiomyopathy: Was felt to have a mild tachycardia induced cardiomyopathy several years ago. This has resolved. Normal LV systolic function on most recent echocardiogram. No current symptoms suggestive of congestive heart failure. 4. Hypothyroidism: On appropriate supplementation. Curious that his TSH was high few days ago and normal at the time of admission. History of Present Illness Reason for Consultation: Atrial fibrillation Requesting Physician: Raad Attending Physician: Connor Crain MD History of Present Illness The patient is a 66-year-old gentleman with a history of persistent atrial fibrillation who has undergone cardioversion on 3 occasions previously. In September of this year the patient underwent a cardioversion for atrial fibrillation. He has been maintained on flecainide and metoprolol as an outpatient. In general he has been feeling quite well. 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 He did apparently suffer a meniscal tear in 1 of his knees and recently underwent injection therapy. Yesterday evening around 9:00 p.m. the patient noticed a distinct change in his heart rhythm associated with a brief episode of chest discomfort. This was associated with some fullness in the ears but no significant dizziness or lightheadedness. No presyncopal symptoms. He did not have breathing difficulty. He was aware of some change in the rhythm and had some palpitations. Based on the nature of his symptoms he presented to the emergency room for evaluation and was discovered to have atrial fibrillation with high ventricular rates. He was started on diltiazem infusion and admitted to the hospital for observation. The patient cannot recall any other distinct episodes of atrial fibrillation recently. He does have a home blood pressure cuff and pulse oximeter for which he can monitor his pulse. He has not noticed any high heart rates or evidence of irregularity recently. He was tried on higher dose of flecainide subsequent to his last cardioversion but apparently had significant fatigue. The dose was subsequently reduced to his current 50 mg twice daily. This morning claims to be feeling well. He states that he has been as ambulatory as possible in his hospital room. He did not have symptoms of dizziness or lightheadedness. No additional episodes of chest pain. Allergies Allergy/AdvReac Type Severity Reaction Status Date / Time amoxicillin Allergy Intermediate rash Verified 03/01/22 23:04 azithromycin Allergy Intermediate Rash Verified 03/01/22 23:04 clavulanic acid Allergy Intermediate rash Verified 03/01/22 23:04 clindamycin Allergy Unknown CANT Verified 03/01/22 23:04 REMEMBER Quinolones Allergy Unknown CANT Verified 03/01/22 23:04 REMEMBER INO Inhibitors AdvReac Intermediate Cough Verified 03/01/22 23:04 fentanyl AdvReac Intermediate "HARD TO Verified 03/01/22 23:04 GET OUT OF MY SYSTEM" metformin AdvReac Intermediate diarrhea Verified 03/01/22 23:04 rosuvastatin [From Crestor] AdvReac Intermediate NAUSEA AND Verified 03/01/22 23:04 CONSTIPATED tamsulosin AdvReac Intermediate dizziness Verified 03/01/22 23:04 Home Medications Medication Instructions Recorded Confirmed Type CPAP Machine #1 ea 12/04/19 10/06/22 Rx CPAP Machine #1 ea 04/29/19 02/14/22 Rx CPAP Machine #1 ea 06/25/19 02/14/22 Rx CPAP Machine #1 ea 06/25/19 02/14/22 Rx baclofen 10 mg tablet 10 mg PO BID PRN muscle pain #60 07/25/21 03/01/22 Rx tabs metoprolol succinate 100 mg 150 mg PO PM #135 tabs 07/30/21 03/01/22 Rx tablet,extended release 24 hr rivaroxaban 20 mg tablet (Xarelto) 20 mg PO QPM 09/14/21 03/01/22 History hydrochlorothiazide 25 mg tablet 25 mg PO QAM #90 tabs 10/16/21 03/01/22 Rx doxazosin 2 mg tablet 2 mg PO QPM #90 tabs 12/10/21 03/01/22 Rx dulaglutide 1.5 mg/0.5 mL 1.5 mg (0.5 mL) subcut WK #2 mL 12/26/21 03/01/22 Rx subcutaneous pen injector losartan 50 mg tablet 50 mg PO DAILY #90 tabs 12/26/21 03/01/22 Rx flecainide 50 mg tablet 50 mg PO Q12H #180 tabs 12/27/21 03/01/22 Rx icosapent ethyl 1 gram capsule 2 g PO BID #360 caps 01/17/22 03/01/22 Rx (Vascepa) acetaminophen 300 mg-codeine 30 mg 1 tab PO Q8H PRN Pain #90 tabs 02/05/22 03/01/22 Rx tablet atorvastatin 80 mg tablet 80 mg PO HS #30 tabs 02/07/22 03/01/22 Rx levothyroxine 75 mcg tablet 75 mcg PO DAILY #90 tabs 02/27/22 03/01/22 Rx diclofenac sodium 1 % topical gel 2 g topical QID PRN PAIN 03/01/22 03/01/22 History valacyclovir 1 gram tablet 2,000 mg PO BID PRN Cold Sores 03/01/22 03/01/22 History Patient History Medical History Anxiety Atrial fibrillation BPH with obstruction/lower urinary tract symptoms Cardiomyopathy Resolved Chronic back pain Diabetes mellitus, type 2 Hyperlipidemia Hypertension Osteoarthritis Sleep apnea CPAP Surgical History Adverse anesthesia outcome [place] ill x1 week (described as feeling hungover) - Fentanyl History of arthroscopy RIGHT History of cardioversion [place] with cardioversion 2019 History of colonoscopy History of endoscopic sinus surgery History of tonsillectomy Family History Father Hx of CABG Colon cancer Type 2 diabetes mellitus Other No family history of adverse response to anesthesia No family history of bleeding disorder Denies family history of Ovarian cancer Prostate cancer Myocardial infarction Breast cancer Social History Smoking Status: Former smoker Age Started Using Tobacco: 18; Age Quit Using Tobacco: 26; packs per day: 1; Second Hand Exposure: No; Hx Alcohol Use: Yes Alcohol type: beer Alcohol Intake Frequency Comment: 2-3 beers/ every 2 weeks Hx Substance Use: No Preferred Language: Thai Communication Ability: Effective Hearing Ability: Hard of Hearing Technical Sme Required: No Beliefs That Will Affect Care: None marital status: Current Living Situation: Alone current occupational status: employed current occupation: [employer] Feels Safe at Home: Yes Childhood Exposure to Second-Hand Smoke: Yes caffeine: Yes Dental Care, Regularly: Yes Physical Activity Frequency: Does not Exercise Seatbelt Use: always Sunscreen Use: Yes Assistive Devices: Glasses Review of Systems Review of Systems: Per HPI Physical Exam Physical Exam: The patient is alert and oriented. Mood and affect appeared normal. He answered all questions appropriately. HEENT: Pupils are equal and reactive to light and accommodation. Extraocular movements are intact. The sclerae are anicteric. Neuro: Cranial nerves intact Lungs: Clear to auscultation bilaterally. He has good air movement without use of accessory muscles. No rales wheezes or rhonchi. Cardiac: Heart demonstrates an irregular rate and rhythm. Normal S1 and S2. No murmurs on examination. Pulses: The patient has palpable radial pulses bilaterally that are equal in intensity Extremities: There was no evidence of hypoperfusion. There is no cyanosis or clubbing. There is no edema. Skin: I did not appreciate any rashes on examination today. Results & Data ([facility]) Vital Signs (Past 12 Hours) Vital Signs Temp Pulse Pulse Resp BP BP Pulse Ox 03/02/22 06:48 37.1 C 86 18 137/64 96 03/02/22 00:47 36.9 C 98 H 12 111/60 95 03/02/22 00:47 03/02/22 03:47 36.9 C 89 21 115/68 96 03/02/22 00:47 36.9 C 98 H 12 111/60 95 03/01/22 23:50 98 H 18 96 03/01/22 23:50 102/65 03/01/22 23:46 123/74 03/01/22 23:46 108 H 19 97 03/01/22 23:40 116 H 20 97 03/01/22 23:40 126/70 03/01/22 23:35 97 H 26 H 96 03/01/22 23:35 126/57 L 03/01/22 23:30 106 H 16 96 03/01/22 23:30 118/56 L 03/01/22 23:25 103 H 16 97 03/01/22 23:25 117/52 L 03/01/22 23:20 112 H 21 96 03/01/22 23:20 106/68 03/01/22 23:15 102 H 19 96 03/01/22 23:15 112/62 03/01/22 23:10 104 H 17 97 03/01/22 23:10 118/67 03/01/22 23:05 127/70 03/01/22 23:05 111 H 23 96 03/01/22 23:00 101 H 20 96 03/01/22 23:00 107/71 03/01/22 22:55 115/65 03/01/22 22:55 102 H 15 96 03/01/22 22:50 109 H 17 96 03/01/22 22:50 107 H 111/62 03/01/22 22:45 131/66 03/01/22 22:45 117 H 25 H 96 03/01/22 22:40 105 H 23 96 03/01/22 22:40 102/74 03/01/22 22:35 106 H 18 129/66 96 03/01/22 22:30 102 H 18 118/59 L 95 03/01/22 22:03 36.8 C 95 H 20 142/96 H 96 Pulse Ox O2 Del Method O2 Del Method 03/02/22 06:48 Room Air 03/02/22 00:47 Room Air 03/02/22 00:47 94 Room Air 03/02/22 03:47 Room Air 03/02/22 00:47 Room Air 03/01/22 23:50 03/01/22 23:50 03/01/22 23:46 03/01/22 23:46 03/01/22 23:40 03/01/22 23:40 03/01/22 23:35 03/01/22 23:35 03/01/22 23:30 03/01/22 23:30 03/01/22 23:25 03/01/22 23:25 03/01/22 23:20 03/01/22 23:20 03/01/22 23:15 03/01/22 23:15 03/01/22 23:10 03/01/22 23:10 03/01/22 23:05 03/01/22 23:05 03/01/22 23:00 03/01/22 23:00 03/01/22 22:55 03/01/22 22:55 03/01/22 22:50 03/01/22 22:50 03/01/22 22:45 03/01/22 22:45 03/01/22 22:40 03/01/22 22:40 03/01/22 22:35 03/01/22 22:30 03/01/22 22:03 Room Air Laboratory Results Abnormal Lab Results 03/01/22 03/01/22 03/01/22 22:13 22:13 22:13 WBC 7.48 RBC 4.14 L Hgb 13.0 L Hct 36.3 L MCV 87.7 MCH 31.4 MCHC 35.8 RDW Std Deviation 39.7 RDW Coeff of Tae 12.4 Plt Count 236 MPV 9.7 Immature Gran % (Auto) 0.3 Neut % (Auto) 90.5 Lymph % (Auto) 8.4 [place] % (Auto) 0.7 Eos % (Auto) 0.0 Baso % (Auto) 0.1 Neut # (Auto) 6.77 H Lymph # (Auto) 0.63 L [place] # (Auto) 0.05 L Eos # (Auto) 0.00 Baso # (Auto) 0.01 Immature Gran # (Auto) 0.02 Echinocytes 2+ Sodium 134 L Potassium 4.0 Chloride 102 Carbon Dioxide 23 Anion Gap 9 BUN 32 H Creatinine 1.25 Est Cr Clr Drug Dosing 75.5 Est GFR ( Amer) 68.6 Est GFR (Non-Af Amer) 59.2 BUN/Creatinine Ratio 25.6 H Glucose 327 H* POC Glucose Calcium 9.5 Magnesium 1.7 Total Bilirubin 0.9 AST 19 ALT 24 Alkaline Phosphatase 51 Troponin I High Sens 3.7 Total Protein 7.2 Albumin 4.5 Globulin 2.7 Albumin/Globulin Ratio 1.7 TSH 1.238 Ethyl Alcohol mg/dL SARS-CoV-2, RNA, NAAT 03/01/22 03/02/22 03/02/22 22:13 00:04 00:04 WBC RBC Hgb Hct MCV MCH MCHC RDW Std Deviation RDW Coeff of Tae Plt Count MPV Immature Gran % (Auto) Neut % (Auto) Lymph % (Auto) [place] % (Auto) Eos % (Auto) Baso % (Auto) Neut # (Auto) Lymph # (Auto) [place] # (Auto) Eos # (Auto) Baso # (Auto) Immature Gran # (Auto) Echinocytes Sodium Potassium Chloride Carbon Dioxide Anion Gap BUN Creatinine Est Cr Clr Drug Dosing Est GFR ( Amer) Est GFR (Non-Af Amer) BUN/Creatinine Ratio Glucose POC Glucose Calcium Magnesium Total Bilirubin AST ALT Alkaline Phosphatase Troponin I High Sens 4.8 Total Protein Albumin Globulin Albumin/Globulin Ratio TSH Ethyl Alcohol mg/dL < 10.0 SARS-CoV-2, RNA, NAAT NEGATIVE 03/02/22 03/02/22 03/02/22 01:18 07:56 07:57 WBC RBC Hgb Hct MCV MCH MCHC RDW Std Deviation RDW Coeff of Tae Plt Count MPV Immature Gran % (Auto) Neut % (Auto) Lymph % (Auto) [place] % (Auto) Eos % (Auto) Baso % (Auto) Neut # (Auto) Lymph # (Auto) [place] # (Auto) Eos # (Auto) Baso # (Auto) Immature Gran # (Auto) Echinocytes Sodium Potassium Chloride Carbon Dioxide Anion Gap BUN Creatinine Est Cr Clr Drug Dosing Est GFR ( Amer) Est GFR (Non-Af Amer) BUN/Creatinine Ratio Glucose POC Glucose 319 H* 317 H* 273 H Calcium Magnesium Total Bilirubin AST ALT Alkaline Phosphatase Troponin I High Sens Total Protein Albumin Globulin Albumin/Globulin Ratio TSH Ethyl Alcohol mg/dL SARS-CoV-2, RNA, NAAT 03/02/22 07:59 WBC RBC Hgb Hct MCV MCH MCHC RDW Std Deviation RDW Coeff of Tae Plt Count MPV Immature Gran % (Auto) Neut % (Auto) Lymph % (Auto) [place] % (Auto) Eos % (Auto) Baso % (Auto) Neut # (Auto) Lymph # (Auto) [place] # (Auto) Eos # (Auto) Baso # (Auto) Immature Gran # (Auto) Echinocytes Sodium Potassium Chloride Carbon Dioxide Anion Gap BUN Creatinine Est Cr Clr Drug Dosing Est GFR ( Amer) Est GFR (Non-Af Amer) BUN/Creatinine Ratio Glucose POC Glucose 310 H* Calcium Magnesium Total Bilirubin AST ALT Alkaline Phosphatase Troponin I High Sens Total Protein Albumin Globulin Albumin/Globulin Ratio TSH Ethyl Alcohol mg/dL SARS-CoV-2, RNA, NAAT Diagnostic Findings Echocardiogram dated 05/16/2021: Normal LV systolic function with ejection fraction of 60 65%. Mild LVH. No significant valvular heart disease. Chest x-ray is obtained the time admission which not really active cardiopulmonary disease. ECG Additional Comments: EKG of the time admission revealed atrial fibrillation with a heart rate of 99 PG Care Time/CCT Total # of Minutes Spent Total Time Spent with Patient: Total time spent is greater than 50% in coordination of care (as documented) at patient's floor/unit and/or counseling patient: Coding Level of Care Code INT OBSERVATION CARE 70M LVL 3 Diagnoses Hypertriglyceridemia E78.1 Hypothyroidism E03.9 Atrial fibrillation I48.91 Cardiomyopathy I42.9
--- NOTE | 2022-03-02 16:12 | Discharge Summary ---
Date of Service March 02, 2022 Admission HPI Per Admitting Provider Adan Polanco is a pleasant 66yo male with history of atrial fibrillation. He is presently on Flecainide and metoprolol as well as Xarelto anticoagulation. Patient follows with Cardiology - last seen on 11/07/2021. He has had cardioversion x 3 - 03/2019, 04/2019 and most recently 09/2021. He did have a tachycardia induced non-ischemic cardiomyopathy - EF of 35-40% with mildly dilated LV and global hypokinesis on echocardiogram from 03/2019. This has since resolved. Most recent echocardiogram 05/16/2021 with normal LV size and function, mildly dilated LA, EF of 60-65% and no regional WMA. Patient was in his usual state of health today until this evening around 21:00. He was walking to the kitchen when he felt a thump in his chest, "like my heart stopped", followed by palpitations and mild substernal chest discomfort. He put on his home pulse oximeter and was in atrial fibrillation with rates of 110 - 115. He denies dizziness, SOB, pre-syncope. He has been compliant with his medications. Did already take his evening Flecainide and Metoprolol prior to arrival. He was recently restarted on Synthroid. He did get a steroid injection in his right knee today around 10:00 AM. He also reports drinking 3 glasses of wine this evening between the hours of 16:00 and 18:00 which is atypical for him. No additional complaints. He denies chest pain currently. He is still experiencing palpitations. He denies fever, chills, cough, SOB, nausea, vomiting, diarrhea or constipation. He is compliant with medications with no missed doses. In the ER he is afebrile, AF with RVR on arrival. He was started on a Cardizem gtt. Presently on gtt at 5 HR is 90's - 110's and son at bedside as well. ER Course: Diltiazem gtt Principal Diagnosis Atrial fibrillation with rapid ventricular rate Discharge Exam Neck exam no JVD Cardiovascular S1-S2 heard no rubs Lungs bilateral air entry fair no wheezing Abdomen soft no rebound tenderness Neurological no focal deficits Discharge Data Allergies Allergy/AdvReac Type Severity Reaction Status Date / Time amoxicillin Allergy Intermediate rash Verified 03/01/22 23:04 azithromycin Allergy Intermediate Rash Verified 03/01/22 23:04 clavulanic acid Allergy Intermediate rash Verified 03/01/22 23:04 clindamycin Allergy Unknown CANT Verified 03/01/22 23:04 REMEMBER Quinolones Allergy Unknown CANT Verified 03/01/22 23:04 REMEMBER INO Inhibitors AdvReac Intermediate Cough Verified 03/01/22 23:04 fentanyl AdvReac Intermediate "HARD TO Verified 03/01/22 23:04 GET OUT OF MY SYSTEM" metformin AdvReac Intermediate diarrhea Verified 03/01/22 23:04 rosuvastatin [From Crestor] AdvReac Intermediate NAUSEA AND Verified 03/01/22 23:04 CONSTIPATED tamsulosin AdvReac Intermediate dizziness Verified 03/01/22 23:04 Consultations 03/01/22 23:06 ED Decision to Admit Stat 03/02/22 00:47 Consult Cardiology Routine Hospital Course (1) Atrial fibrillation with rapid ventricular response: 66yo male with atrial fibrillation s/p three prior cardioversions (03/2019, 04/2019 and 09/2021), on Flecainide, Metoprolol and Xarelto presenting in atrial fibrillation with RVR. Patient had some chest discomfort when AF initially started, now resolved. No ischemic changes on EKG. Troponin x 1 NEGATIVE. Recent steroid injection as well as EtOH intake this evening could be precipitating events for patient to go back into atrial fibrillation. He is presently asymptomatic. No evidence of failure. Started on Cardizem gtt in the ER -Admit to PCU -Continue Cardizem gtt for now - ideally wean to off by AM Cardiology consult appreciated. Flecainide dose increased 100 twice daily as per cardiology recommendation -Continue Metoprolol 150mg po daily -Continue Xarelto 20mg po qPM -Magnesium x 3gm IV As per cardiology recommendation patient will be discharged and advised to follow with cardiology in 2 to 3 days upon discharge - (2) Type II diabetes mellitus: Overall well controlled Type II DM with last HgbA1C 6.3 on 02/26/22. He is on Liraglutide outpatient. Elevated blood sugar presently. ?steroid + wine contributing? -Lantus 8u BID -ISS -Goal blood sugar 110 - 140 (3) Hypertension: Chronic. Blood pressure well controlled at present -Continue Losartan -HCTZ was recently discontinued -Continue metoprolol -Monitor (4) Hypercholesterolemia: Chronic. Stable on medications -Continue Atorvastatin 80mg po daily -Patient is on Icosapent 2gm po BID. May consider discontinuing or decreasing the dosage of this medication in setting of atrial fibrillation. Some studies suggest dose-related risk of AF with omega-3 fatty acid intake. (REDUCE-IT trial - AF with icosapent 5.3% vs placebo 3.9%) Patient has hypertriglyceridemia and patient advised to cut down on alcohol intake (5) Moderate obstructive sleep apnea: Chronic. Patient reports compliance with home CPAP -Continue CPAP [id number] qHS (6) Hypothyroidism: Patient recently restarted on Synthroid. Normal TSH today at 1.238 -Continue Synthroid Total Time Total Time Spent Total Time Spent (In Minutes): 42 mins Discharge Plan Discharge Items Patient Disposition: Home - Self-Care Reason For Visit: AF WITH RVR Discharge Diagnosis: Atrial fibrillation with controlled ventricular rate Condition on Discharge: Good Activity: Per Instructions section Lifting: No more than 10 pounds and Wait until after follow-up appointment Bathing: No limitations Sexual Activity: Wait until after follow-up appointment Exercise/Sports: Wait until after follow-up appointment Driving/Machine Use: Resume 1 day after discharge Weightbearing: Full weightbearing Non-emergency contact: Primary Care Provider and Adjunct [employer] Call non-emergency contact if: your symptoms worsen Follow-up/Referrals: Lacie Mota CRNP [Primary Care Provider] - Diet: Heart Healthy Diet Comment: Low-cholesterol heart healthy diet limit alcohol intake Addtl Attending Provider Instructions: Patient to follow-up with cardiology in 2 to 3 days Pending Studies at Discharge: No Stand-Alone Forms: [employer], Smoking Cessation Medications and DC Order Prescriptions: Continued (DME) CPAP Machine Misc See Rx Instructions .ROUTE .MEDSUPPLY Qty: 1 0RF Rx Instructions: Autotitrating CPAP qHS. set 4-20. Dx G47.33 baclofen 10 mg tablet 10 mg PO BID PRN (Reason: muscle pain) Qty: 60 2RF metoprolol succinate 100 mg tablet extended release 24 hr 150 mg PO PM Qty: 135 3RF hydrochlorothiazide 25 mg tablet 25 mg PO QAM Qty: 90 3RF doxazosin 2 mg tablet 2 mg PO QPM Qty: 90 3RF icosapent ethyl [Vascepa] 1 gram capsule 2 g PO BID Qty: 360 3RF atorvastatin 80 mg tablet 80 mg PO HS Qty: 30 5RF levothyroxine 75 mcg tablet 75 mcg PO DAILY Qty: 90 1RF (DME) CPAP Machine Misc See Rx Instructions .ROUTE .MEDSUPPLY Qty: 1 0RF Rx Instructions: INCREASE MIN AUTO CPAP TO 10. CONTINUE MAX 20. CARE PLUS O2 (DME) CPAP Machine Misc See Rx Instructions .ROUTE .MEDSUPPLY Qty: 1 0RF Rx Instructions: INCREASE MIN CPAPA 10. CONTINUE MAX CPAP 20. CARE PLUS O2 losartan 50 mg tablet 50 mg PO DAILY Qty: 90 3RF dulaglutide 1.5 mg/0.5 mL pen injector 1.5 mg subcut WK Qty: 2 3RF Rx Instructions: TAKES ON SUNDAYS (DME) CPAP Machine Misc See Rx Instructions .ROUTE .MEDSUPPLY Qty: 1 0RF Rx Instructions: CHANGE AUTO BIPAP TO MIN 7CM MAX 20CM. CARE PLUS O2 Xarelto 20 mg tablet 20 mg PO QPM Rx Instructions: must administer with evening meal Changed flecainide 50 mg tablet 100 mg PO Q12H Qty: 180 3RF Discontinued acetaminophen-codeine 300-30 mg tablet 1 tab PO Q8H PRN (Reason: Pain) Qty: 90 1RF valacyclovir 1 gram tablet 2,000 mg PO BID PRN (Reason: Cold Sores) Rx Instructions: x 2 doses diclofenac sodium 1 % gel 2 g topical QID PRN (Reason: PAIN) Discharge Orders: Discharge Order (Routine); Ordered 03/02/22 Ordered By: Connor Crain Admission Data Admit Date/Time: 03/01/22 23:57 Attending Provider: Connor Crain Admit Provider: Paige Shankar Primary Care Provider: Lacie Mota Other Providers: Paige Shankar ; Emeka White ; Connor Crain Coding Level of Care Code D/C DAY MANAGEMENT >30 MINS Diagnoses Atrial fibrillation with rapid ventricular response I48.91 Type II diabetes mellitus E11.9 Hypertension I10 Hypercholesterolemia E78.00 Moderate obstructive sleep apnea G47.33 Hypothyroidism E03.9
[2022-03-02] MEDS ORDERED: DOXAZosin MESYLATE TAB 2 MG TAB PO SCH (21:00)
[2022-03-02] MEDS ORDERED: ATORVASTATIN 40 MG TAB PO SCH (21:00)
[2022-03-02] MEDS ORDERED: METOPROLOL SUCC 50MG EXT REL TAB PO SCH (21:00)
[2022-03-02] MEDS ORDERED: RIVAROXABAN 20 MG TAB PO SCH (21:00)
== END 2022-03-02 18:11 | disposition home or self-care (01) ==
LOC: ED 21:58 → SUATTDRO 23:57 → INTOOBSV 23:57 → 4W 23:57